=== PATIENT | female | born 1950 ===

== ENCOUNTER 2016-09-12 14:26 | Emergency (ER) | payer MEDICAID, MEDICARE ==
[2016-09-12 14:33] VITALS: TEMP 97.5
[2016-09-12 15:25] VITALS: BP 124/75; PULSE 68; RESP 18; O2SAT 98
--- NOTE | 2016-09-12 16:34 | C.PDOC ---
History Of Present Illness 66 yr old female presents to the ER with complaints of headache and pain under the left eye for the past 4 days. Patient states she took ibuprofen earlier today with some relief. Denies fever, vision changes, pain with movement of the eye, neck pain, weakness or numbness. Time Seen by Provider: 09/12/16 15:05 Chief Complaint (Nursing): Headache History Per: Patient History/Exam Limitations: no limitations Onset/Duration Of Symptoms: Days (4) Preceeding Symptoms: None Past Medical History Reviewed: Historical Data, Nursing Documentation, Vital Signs Vital Signs: Last Vital Signs Temp 97.5 F L 09/12/16 14:29 Pulse 68 09/12/16 15:24 Resp 18 09/12/16 15:24 BP 124/75 09/12/16 15:24 Pulse Ox 98 09/12/16 16:37 - Medical History PMH: Arthritis, Osteoporosis Family History: States: No Known Family Hx - Social History Hx Tobacco Use: No Hx Alcohol Use: No Hx Substance Use: No - Immunization History Hx Tetanus Toxoid Vaccination: Yes Hx Influenza Vaccination: No Hx Pneumococcal Vaccination: No Review Of Systems Except As Marked, All Systems Reviewed And Found Negative. Constitutional: Negative for: Fever Eyes: Positive for: Pain (Pain under left eye ). Negative for: Vision Change Musculoskeletal: Negative for: Neck Pain Neurological: Positive for: Headache. Negative for: Weakness, Numbness Physical Exam - Physical Exam Appears: Non-toxic, No Acute Distress Skin: Warm, Dry, No Rash Head: Atraumatic, Normacephalic Eye(s): bilateral: Normal Inspection, PERRL, EOMI, left: Other (Extraocular muscles intact. Globe is soft. Tenderness in the left maxillary sinus. ) Ear(s): Bilateral: Normal Neck: Normal, Normal ROM, Supple Chest: Symmetrical, No Tenderness Cardiovascular: Rhythm Regular, No Murmur Respiratory: Normal Breath Sounds, No Rales, No Rhonchi, No Stridor, No Wheezing Extremity: Normal ROM, No Swelling Neurological/Psych: Oriented x3, Normal Speech, Normal Motor, Normal Sensation ED Course And Treatment O2 Sat by Pulse Oximetry: 98 Medical Decision Making Medical Decision Making: PLAN: * Tylenol PO Disposition - Disposition Referrals: dIalia Williamson, [Non-Staff] - Disposition: HOME/ ROUTINE Disposition Time: 15:00 Condition: GOOD Additional Instructions: Thank you for letting us take care of you today. Your provider was Dr. Stevenson. You were treated for sinus infection. The emergency medical care you received today was directed at your acute symptoms. If you were prescribed any medication, please fill it and take as directed. It may take several days for your symptoms to resolve. Return to the Emergency Department if your symptoms worsen, do not improve, or if you have any other problems. Please contact your doctor or call one of the physicians/clinics you have been referred to that are listed on the Patient Visit Information form that is included in your discharge packet. Bring any paperwork you were given at discharge with you along with any medications you are taking to your follow up visit. Our treatment cannot replace ongoing medical care by a primary care provider (PCP) outside of the emergency department. Thank you for allowing the [facility] team to be part of your care today. Follow up with your doctor in 3-4 days for re-evaluation. Prescriptions: Amoxicillin/Clavulanate [Augmentin 875 MG-125 MG] 1 tab PO Q12 #14 tab Instructions: Sinusitis (ED) Forms: Gen Discharge Inst Burkinan Print Language: ISRAELI - Clinical Impression Clinical Impression: Sinusitis - Scribe Statement The provider has reviewed the documentation as recorded by the Nini Joaquin Provider Attestation: All medical record entries made by the Nini were at my direction and personally dictated by me. I have reviewed the chart and agree that the record accurately reflects my personal performance of the history, physical exam, medical decision making, and the department course for this patient. I have also personally directed, reviewed, and agree with the discharge instructions and disposition.
== END 2016-09-12 15:25 | disposition home or self-care (01) ==
LOC: C.ER 14:26
DX: J32.9 Chronic sinusitis, unspecified (principal)

== ENCOUNTER 2016-09-29 13:30 | Emergency (ER) | payer OTHER, MEDICAID ==
[2016-09-29] MEDS ORDERED: Sodium Chloride 0.9% 1,000 ML IV ONE (13:54)
[2016-09-29 14:29] LABS: BASO % 0.5 % (0.0-2.0); EOS # 0.1 K/uL (0.0-0.7); HEMOGLOBIN 12.7 g/dL (11.0-16.0); LYMPH # 2.5 K/uL (1.0-4.3); LYMPH % 38.6 % (20.0-40.0); MEAN CELL VOLUME 89.8 fL (81.0-99.0); MEAN CORPUSCULAR HEMOGLOBIN 29.6 pg (27.0-31.0); MEAN PLATELET VOLUME 9.7 fL (7.2-11.7); MONO # 0.5 K/uL (0.0-0.8); MONO % 7.8 % (0.0-10.0); NEUT # 3.4 K/uL (1.8-7.0); NEUT % 52.1 % (50.0-75.0); RBC 4.28 Mil/uL (3.80-5.20); RED CELL DISTRIBUTION WIDTH 13.2 % (11.5-14.5); WHITE BLOOD COUNT 6.5 K/uL (4.8-10.8)
[2016-09-29] MEDS ORDERED: Sodium Chloride 0.9% 1,000 ML ONE (14:33)
[2016-09-29 14:34] LABS: SQUAMOUS EPITHIAL < 1 /hpf (0-5); URINE BILIRUBIN NEGATIVE (NEGATIVE); URINE BLOOD 1+ (NEGATIVE); URINE CLARITY Clear (Clear); URINE COLOR Colorless (YELLOW); URINE GLUCOSE (UA) NORMAL (Normal); URINE LEUKOCYTE ESTERASE NEG Leu/uL (Negative); URINE NITRATE NEGATIVE (NEGATIVE); URINE PROTEIN NEGATIVE (NEGATIVE); URINE UROBILINOGEN NORMAL mg/dL (0.2-1.0)
[2016-09-29 14:39] LABS: GFR AFRICAN-AMERICAN > 60; GFR NON-AFRICAN AMERICAN > 60
[2016-09-29 14:40] LABS: ALB/GLOB RATIO 1.4 (1.0-2.1); ALT/SGPT 35 U/L (9-52); AST/SGOT 30 U/L (14-36); BLOOD UREA NITROGEN 10 mg/dL (7-17); CALCIUM 9.1 mg/dl (8.6-10.4); LIPASE 91 U/L (23-300)
--- NOTE | 2016-09-29 15:34 | C.PDOC ---
History Of Present Illness 66 y/o female that presents to the ED for evaluation of nausea associated with abdominal cramping for the last 2 days. Patient also reports having multiple mucousy bowel movements. Patient states that her symptoms began after "eating pork" 1 week ago- states pork doesn't typically agree with her. Patient denies vomiting, diarrhea, fever, dysuria/hematuria, vagnal bleeding/discharge. Time Seen by Provider: 09/29/16 13:36 Chief Complaint (Nursing): Abdominal Pain History Per: Patient History/Exam Limitations: no limitations Onset/Duration Of Symptoms: Days (2) Current Symptoms Are (Timing): Still Present Severity: Mild Quality Of Discomfort: Cramping Associated Symptoms: Nausea. denies: Fever, Chills, Vomiting, Diarrhea, Loss Of Appetite, Back Pain, Chest Pain, Constipation, Urinary Symptoms Exacerbating Factors: None Alleviating Factors: None Recent travel outside of the [place]: No Additional History Per: Patient Abnormal Vaginal Bleeding: No Past Medical History Reviewed: Historical Data, Nursing Documentation, Vital Signs Vital Signs: Last Vital Signs Temp 97.8 F 09/29/16 15:39 Pulse 58 L 09/29/16 15:39 Resp 16 09/29/16 15:39 BP 127/68 09/29/16 15:39 Pulse Ox 96 09/29/16 16:20 - Medical History PMH: Arthritis, Osteoporosis Family History: States: No Known Family Hx - Social History Hx Tobacco Use: No Hx Alcohol Use: No Hx Substance Use: No - Immunization History Hx Tetanus Toxoid Vaccination: Yes Hx Influenza Vaccination: No Hx Pneumococcal Vaccination: No Review Of Systems Except As Marked, All Systems Reviewed And Found Negative. Constitutional: Negative for: Fever, Chills Cardiovascular: Negative for: Chest Pain, Palpitations Respiratory: Negative for: Cough, Shortness of Breath Gastrointestinal: Positive for: Nausea, Abdominal Pain, Other (mucousy bowel movements). Negative for: Vomiting, Diarrhea, Constipation Genitourinary: Negative for: Dysuria, Frequency, Hematuria Musculoskeletal: Negative for: Back Pain Physical Exam - Physical Exam Appears: Well, Non-toxic, No Acute Distress Skin: Normal Color, Warm, Dry Eye(s): bilateral: Normal Inspection Oral Mucosa: Moist Cardiovascular: Rhythm Regular Respiratory: Normal Breath Sounds, No Rales, No Rhonchi, No Wheezing Gastrointestinal/Abdominal: Normal Exam, Bowel Sounds, Soft, No Tenderness, No Guarding, No Rebound Neurological/Psych: Oriented x3 ED Course And Treatment - Laboratory Results Result Diagrams: 09/29/16 14:24 09/29/16 14:24 O2 Sat by Pulse Oximetry: 96 (on RA) Pulse Ox Interpretation: Normal Progress Note: Blood work, urinalysis ordered and reviewed. Patient was given IV NS bolus, PO tylenol. Reevaluation Time: 15:30 Reassessment Condition: Improved (On reassessment, patient states she feels well , has no current pain. On exam, abdomen is soft and nontender. Blood work, UA unremarkable. Patient given Rxs for Bentyl and Zofran, and was instructed to drink plenty of clear fluids and follow up with PMD in 1-2 days. She understands she should return to ED if symptoms worsen.) Disposition Counseled Patient/Family Regarding: Studies Performed, Diagnosis, Need For Followup, Rx Given - Disposition Referrals: Everardo Li MD [Medical Doctor] - Disposition: HOME/ ROUTINE Disposition Time: 15:30 Condition: STABLE Additional Instructions: SEGUIMIENTO CON KUMAR MDICO EN 1-2 CHANG BEBIDA DE FLUIDOS JESSICA DEVUELVA A LA ROXANE DE EMERGENCIA SI LOS SNTOMAS EMPEORARAN USE MEDICAMENTOS MARK SEA NECESARIO Prescriptions: Dicyclomine [Bentyl] 20 mg PO Q6 PRN #12 tab PRN Reason: ABDOMINAL CRAMPING Ondansetron [Zofran Odt] 4 mg PO Q8 PRN #10 odt PRN Reason: Nausea/Vomiting Forms: General Discharge Instructions Print Language: TAJIK - POA Present On Arrival: None - Clinical Impression Clinical Impression: Nausea, Headache, Increased stool volume - Scribe Statement The provider has reviewed the documentation as recorded by the Jenniferibfelecia Castelan All medical record entries made by the Scribe were at my direction and personally dictated by me. I have reviewed the chart and agree that the record accurately reflects my personal performance of the history, physical exam, medical decision making, and the department course for this patient. I have also personally directed, reviewed, and agree with the discharge instructions and disposition.
[2016-09-29 15:40] VITALS: BP 127/68; PULSE 58; RESP 16; TEMP 97.8
[2016-09-29 16:14] VITALS: O2SAT 96
== END 2016-09-29 15:50 | disposition home or self-care (01) ==
LOC: C.ER 13:30
DX: R11.0 Nausea (principal); R51 Headache; R19.8 Other specified symptoms and signs involving the digestive system and abdomen
CPT/HCPCS: 80053; 81001; 83690; 85025; 96360; 99284; J7040

== ENCOUNTER 2017-11-10 14:35 | Emergency (ER) | payer OTHER ==
[2017-11-10 14:59] VITALS: BMI 22.2
[2017-11-10 15:03] VITALS: PULSE 69
--- NOTE | 2017-11-10 15:31 | C.PDOC ---
History Of Present Illness HPI: Patient is a 67 year old female with history of gastritis who reports for 3 day history of right sided rib pain that radiates around to right side of her back associated with nausea, headache. She also complains of 1 week history of burning with urination. She denies fevers, chills, chest pain, shortness of breath, palpitations, hematuria, vaginal discharge, vaginal bleeding, diarrhea, constipation. She denies injuring her ribs in any way recently, denies falls. PMH: gastritis, arthritis PSH: none Social hx: denies alcoho, tobacco or drug use. Meds: Vitamins, Raloxifene Allergies: milk PMD: Dr. Everardo Li Time Seen by Provider: 11/10/17 15:06 Chief Complaint (Nursing): Rib Injury Past Medical History Vital Signs: Last Vital Signs Temp 97.6 F 11/10/17 18:53 Pulse 69 11/10/17 18:53 Resp 16 11/10/17 18:53 BP 115/70 11/10/17 18:53 Pulse Ox 98 11/10/17 18:53 - Medical History PMH: Arthritis, Osteoporosis Family History: States: Unknown Family Hx - Social History Hx Tobacco Use: No Hx Alcohol Use: No Hx Substance Use: No - Immunization History Hx Tetanus Toxoid Vaccination: Yes Hx Influenza Vaccination: No Hx Pneumococcal Vaccination: No Review Of Systems Constitutional: Negative for: Fever, Chills Cardiovascular: Negative for: Chest Pain, Palpitations Respiratory: Negative for: Cough, Shortness of Breath Gastrointestinal: Positive for: Nausea. Negative for: Vomiting, Diarrhea, Constipation Genitourinary: Positive for: Dysuria. Negative for: Hematuria, Vaginal Discharge, Vaginal Bleeding Skin: Negative for: Rash Physical Exam - Physical Exam Appears: Well, Non-toxic, No Acute Distress Skin: Warm, Dry Head: Atraumatic, Normacephalic Eye(s): bilateral: PERRL, EOMI Oral Mucosa: Moist Chest: Symmetrical, Tenderness (reproducible tenderness along right lower ribs radiating around to posterior ribs. No rash noted. ) Cardiovascular: Rhythm Regular Respiratory: Normal Breath Sounds, No Rales, No Rhonchi, No Stridor, No Wheezing Gastrointestinal/Abdominal: Bowel Sounds, Soft, Tenderness (mild right lower abdominal tenderness, mild suprapubic tenderness. Negative obturator sign. ), No Distention, No Guarding, No Rebound, No Ascites Back: CVA Tenderness (Mild right CVA tenderness. No left CVA tenderness) Extremity: Normal ROM, No Tenderness, No Pedal Edema, No Calf Tenderness ED Course And Treatment - Laboratory Results Result Diagrams: 11/10/17 15:55 11/10/17 15:55 O2 Sat by Pulse Oximetry: 100 - Other Rad Ribs X-Ray: Read By Radiologist Interpretation: No appreciable fracture. Progress Note: On re-evaluation, patient states her pain in her right lower ribs and right lower abdomen has improved. Reevaluation Time: 18:10 Reassessment Condition: Improved Medical Decision Making Medical Decision Making: While in the ED, patient received Tylenol 650mg PO for pain with improvement of her symptoms. CBC with diff, CMP, and UA were ordered and within normal limits. UA did not indicate urinary tract infection. Ribs X ray did not reveal fracture of ribs. Disposition - Disposition Referrals: Everardo Li MD [Medical Doctor] - Disposition: HOME/ ROUTINE Disposition Time: 19:20 Condition: IMPROVED Additional Instructions: Follow up with your primary care doctor Dr. Li in 1 to 2 weeks for evaluation. Please return to the ED if your symptoms persist or worsen or if you develop fever, chills, worsening pain, and worsening symptoms. Instructions: Dysuria, Adult (DC), Bruised Rib (DC) Forms: [employer] (Yi) Print Language: FAROESE - Clinical Impression Clinical Impression: Sprained rib, Dysuria
[2017-11-10 15:58] LABS: BASO % 0.6 % (0.0-2.0); EOS # 0.1 K/uL (0.0-0.7); EOS % 1.2 % (0.0-4.0); HEMOGLOBIN 12.9 g/dL (11.0-16.0); LYMPH # 2.7 K/uL (1.0-4.3); LYMPH % 40.7 % (20.0-40.0); MEAN CELL VOLUME 88.4 fL (81.0-99.0); MEAN CORPUSCULAR HEMOGLOBIN 30.7 pg (27.0-31.0); MEAN CORPUSCULAR HGB CONC 34.7 g/dL (33.0-37.0); MEAN PLATELET VOLUME 9.3 fL (7.2-11.7); MONO # 0.5 K/uL (0.0-0.8); MONO % 7.4 % (0.0-10.0); NEUT # 3.4 K/uL (1.8-7.0); NEUT % 50.1 % (50.0-75.0); NRBC % 0.1 % (0.0-2.0); RBC 4.19 Mil/uL (3.80-5.20); RED CELL DISTRIBUTION WIDTH 13.2 % (11.5-14.5); WHITE BLOOD COUNT 6.7 K/uL (4.8-10.8)
[2017-11-10 16:14] LABS: ALB/GLOB RATIO 1.6 (1.0-2.1); ALBUMIN 4.3 g/dL (3.5-5.0); ALT/SGPT 25 U/L (9-52); AST/SGOT 27 U/L (14-36); BLOOD UREA NITROGEN 17 mg/dL (7-17); CALCIUM 9.2 mg/dl (8.6-10.4); GFR NON-AFRICAN AMERICAN > 60
--- NOTE | 2017-11-10 17:29 | RAD ---
Date of service: 11/10/2017 PROCEDURE: Radiographs of the Chest and Right Ribs. HISTORY: right rib pain COMPARISON: Ribs and left chest x-ray performed 05/10/16 TECHNIQUE: Frontal radiograph of the chest and multiple oblique radiographs of the right ribs were obtained. FINDINGS: RIGHT RIBS: No acute displaced fracture identified. LUNGS: No focal consolidation identified. Please note that chest x-ray has limited sensitivity for the detection of pulmonary masses. PLEURA: No significant pleural effusion. No definite pneumothorax. CARDIOVASCULAR: Heart size appears within normal limits. OTHER FINDINGS: None. IMPRESSION: Unremarkable radiographs of the chest and right ribs. No appreciable displaced right rib fracture.
[2017-11-10 18:17] LABS: SQUAMOUS EPITHIAL 1 /hpf (0-5); URINE BACTERIA RARE (<OCC); URINE BILIRUBIN NEGATIVE (NEGATIVE); URINE BLOOD 1+ (NEGATIVE); URINE CLARITY Hazy (Clear); URINE COLOR Amber (YELLOW); URINE GLUCOSE (UA) NORMAL (Normal); URINE LEUKOCYTE ESTERASE NEG Leu/uL (Negative); URINE PROTEIN NEGATIVE (NEGATIVE); URINE UROBILINOGEN NORMAL mg/dL (0.2-1.0)
[2017-11-10 18:54] VITALS: BP 115/70; RESP 16; TEMP 97.6
[2017-11-10 21:09] VITALS: O2SAT 100
== END 2017-11-10 18:53 | disposition home or self-care (01) ==
LOC: C.ER 14:35
DX: S23.41XA Sprain of ribs, initial encounter (principal); X58.XXXA Exposure to other specified factors, initial encounter; R30.0 Dysuria

== ENCOUNTER 2017-12-17 08:56 | Day surgery (SDC) | payer OTHER ==
[2017-12-17 09:27] VITALS: TEMP 97.1; O2SAT 100
--- NOTE | 2017-12-17 10:43 | CP.SDSHP ---
Same Day Surgery H & P - History Proposed Procedure: EGD Pre-Op Diagnosis: Epigastric pain. abnormal CT Scan of stomach r/o polyp - Previous Medical/Surgical History Cardiac: Hypertension Misc: Other (osteoporosis, gastritis, colitis?, DJD, Liver cysts) Previous Surgical History: Bladder suspension. Tubal ligation - Allergies Allergies: Allergies milk Allergy (Verified 11/10/17 14:58) - Physical Exam Vital Signs: Vital Signs 12/17/17 09:20 Temperature 97.1 F L Pulse Rate 59 L Respiratory 18 Rate Blood Pressure 127/50 L O2 Sat by Pulse 100 Oximetry Mental Status: Alert & Oriented x3 Neuro: WNL Heart: WNL Lungs: WNL GI: WNL - Impression Impression: epigastric pain. abnormal CT of stomach, r/o polypoid mass Pt. Evaluated Today:Candidate for Anesthesia & Procedure: Yes - Date & Time Date: 12/17/17 Time: 10:43 Short Stay Discharge - Short Stay Discharge Admitting Diagnosis/Reason for Visit: ABNORAL FINDINGS ON DX IMAGING, POLYP OF STOMACH A Disposition: HOME/ ROUTINE
[2017-12-17 11:56] VITALS: BP 108/43; PULSE 52; RESP 16
[2017-12-17] MEDS ORDERED: Propofol 10 mg/ml Inj (20 ML) ONE (13:11)
[2017-12-17] MEDS ORDERED: Lidocaine Hydrochloride 5 ML INJ ONE (13:11)
== END 2017-12-17 12:20 | disposition home or self-care (01) ==
LOC: C.ENDO 08:56
PROVIDERS: ATTEND Internal Medicine Gastroenterology
DX: K31.7 Polyp of stomach and duodenum (principal); K76.89 Other specified diseases of liver; K21.9 Gastro-esophageal reflux disease without esophagitis; K44.9 Diaphragmatic hernia without obstruction or gangrene; K29.70 Gastritis, unspecified, without bleeding
CPT/HCPCS: 43239; 88305; J2704

== ENCOUNTER 2018-06-29 16:04 | Emergency (ER) | payer OTHER ==
[2018-06-29 16:05] VITALS: BMI 22.2
--- NOTE | 2018-06-29 19:23 | C.PDOC ---
History Of Present Illness Patient presents feeling dizzy since last night. Patient states she is able to walk, just feels dizzy especially when laying down and standing up. Denies tinnitus. Time Seen by Provider: 06/29/18 19:22 Chief Complaint (Nursing): Dizziness/Lightheaded History Per: Patient History/Exam Limitations: no limitations Onset/Duration Of Symptoms: Days (1) Current Symptoms Are (Timing): Still Present Seizure Or Post-ictal Symptoms: None Fall Associated With With Symptoms: No Severity: Moderate Pain Scale Rating Of: 4 Recent travel outside of the [place]: No - Symptoms Of CVA Associated Symptoms: denies: Impaired Speech, Seizure Activity, New Vision Deficit(Left), New Vision Deficit(Right), Decreased Ability To Walk, New Confusion Past Medical History Reviewed: Historical Data, Nursing Documentation, Vital Signs Vital Signs: Last Vital Signs Temp 97.9 F 06/29/18 16:36 Pulse 73 06/29/18 16:36 Resp 18 06/29/18 16:36 BP 145/70 06/29/18 16:36 Pulse Ox 99 06/29/18 16:36 - Medical History PMH: Arthritis, Osteoporosis Denies: Chronic Kidney Disease Surgical History: Endoscopy Family History: States: Unknown Family Hx - Social History Hx Tobacco Use: No Hx Alcohol Use: No Hx Substance Use: No - Immunization History Hx Tetanus Toxoid Vaccination: Yes Hx Influenza Vaccination: No Hx Pneumococcal Vaccination: No Review Of Systems Constitutional: Negative for: Fever, Chills Cardiovascular: Negative for: Chest Pain, Palpitations Respiratory: Negative for: Cough, Shortness of Breath Gastrointestinal: Negative for: Nausea, Vomiting Neurological: Positive for: Dizziness. Negative for: Weakness, Numbness Physical Exam - Physical Exam Appears: Non-toxic Skin: Warm, Dry Head: Normacephalic Eye(s): bilateral: Normal Inspection (No nystagmus), PERRL, EOMI Oral Mucosa: Moist Neck: Trachea Midline, Supple Chest: Symmetrical, No Tenderness Cardiovascular: Rhythm Regular Respiratory: No Rales, No Rhonchi, No Wheezing Gastrointestinal/Abdominal: Soft, No Tenderness Extremity: Other (Moves all extremities) Neurological/Psych: Oriented x3, Other (Negative romberg. No focal deficit.) ED Course And Treatment - Laboratory Results Result Diagrams: 06/29/18 19:45 06/29/18 19:45 ECG: Interpreted By Me, Viewed By Me ECG Rhythm: Sinus Rhythm (75), Nonspecific Changes O2 Sat by Pulse Oximetry: 99 (Room air) Pulse Ox Interpretation: Normal Progress Note: CT head, EKG, blood work, CXR, and urinalysis ordered. Antivert administered. Reevaluation Time: 22:03 Reassessment Condition: Improved NIHSS Stroke Scale 2 - Date/Time Evaluation Performed Date Performed: 06/29/18 Time Performed: 19:30 When Was NIHSS Performed: Baseline - How Severe is the Stroke Level of Consciousness: 0=Alert LOC to Questions: 0=Both comments correct LOC to commands: 0=Obeys both correctly Best Gaze: 0=Normal Visual: 0=No visual loss Facial: 0=Normal Motor Arm - Left: 0=No drift Motor Arm - Right: 0=No drift Motor Leg - Left: 0=No drift Motor Leg - Right: 0=No drift Limb Ataxia: 0=Absent Sensory: 0=Normal Best Language: 0=No aphasia Dysarthia: 0=Normal articulation Extinction & Inattention (Neglect): 0=Normal, no object Score: 0 Medical Decision Making Medical Decision Making: Upon provider reevaluation patient is feeling better, is medically stable, and requires no further treatment in the ED at this time. Patient will be discharged home with Rx for antivert, zofran . Counseling was provided and all questions were answered regarding diagnosis and need for follow up withdr li. There is agreement to discharge plan. Return if symptoms persist or worsen. Disposition Counseled Patient/Family Regarding: Studies Performed, Diagnosis, Need For Followup, Rx Given - Disposition Referrals: Everardo Li MD [Medical Doctor] - Disposition: HOME/ ROUTINE Disposition Time: 19:23 Condition: FAIR Additional Instructions: Please return if symptoms recur Prescriptions: Meclizine [Antivert] 25 mg PO TID #21 tab Ondansetron ODT [Zofran ODT] 1 odt PO BID PRN #6 odt PRN Reason: Nausea/Vomiting Instructions: Vertigo (a Type of Dizziness) Forms: [facility] (Hungarian) Print Language: ICELANDIC - Clinical Impression Clinical Impression: Dizziness - Scribe Statement The provider has reviewed the documentation as recorded by the Scribe Richard Avery All medical record entries made by the Scribe were at my direction and personally dictated by me. I have reviewed the chart and agree that the record accurately reflects my personal performance of the history, physical exam, medical decision making, and the department course for this patient. I have also personally directed, reviewed, and agree with the discharge instructions and disposition.
[2018-06-29 19:55] LABS: BASO % 0.4 % (0.0-2.0); EOS # 0.1 K/uL (0.0-0.7); EOS % 0.8 % (0.0-4.0); HEMOGLOBIN 13.5 g/dL (11.0-16.0); LYMPH # 3.6 K/uL (1.0-4.3); MEAN CELL VOLUME 91.4 fL (81.0-99.0); MEAN CORPUSCULAR HEMOGLOBIN 30.5 pg (27.0-31.0); MEAN CORPUSCULAR HGB CONC 33.3 g/dL (33.0-37.0); MEAN PLATELET VOLUME 9.6 fL (7.2-11.7); MONO # 0.4 K/uL (0.0-0.8); MONO % 5.9 % (0.0-10.0); NEUT # 2.8 K/uL (1.8-7.0); NEUT % 40.9 % (50.0-75.0); RBC 4.44 Mil/uL (3.80-5.20); RED CELL DISTRIBUTION WIDTH 13.2 % (11.5-14.5); WHITE BLOOD COUNT 6.9 K/uL (4.8-10.8)
[2018-06-29 20:08] LABS: ALB/GLOB RATIO 1.7 (1.0-2.1); ALBUMIN 4.5 g/dL (3.5-5.0); ALT/SGPT 17 U/L (9-52); AST/SGOT 41 U/L (14-36); BLOOD UREA NITROGEN 17 mg/dL (7-17); CALCIUM 9.4 mg/dl (8.6-10.4); GFR NON-AFRICAN AMERICAN > 60
[2018-06-29 20:18] LABS: PROTHROMBIN TIME 11.2 SECONDS (9.7-12.2)
[2018-06-29 20:20] LABS: SQUAMOUS EPITHIAL 1 /hpf (0-5); URINE BACTERIA RARE (<OCC); URINE BILIRUBIN NEGATIVE (NEGATIVE); URINE BLOOD NEGATIVE (NEGATIVE); URINE CLARITY Hazy (Clear); URINE COLOR YELLOW (YELLOW); URINE GLUCOSE (UA) NORMAL (Normal); URINE LEUKOCYTE ESTERASE NEG Leu/uL (Negative); URINE PROTEIN NEGATIVE (NEGATIVE); URINE UROBILINOGEN NORMAL mg/dL (0.2-1.0)
[2018-06-29 22:18] VITALS: BP 122/76; PULSE 70; RESP 18; TEMP 98.5; O2SAT 100
--- NOTE | 2018-06-30 08:02 | RAD ---
Date of service: 06/29/2018 PROCEDURE: CHEST RADIOGRAPH, 1 VIEW HISTORY: SOB COMPARISON: 11/10/2017 FINDINGS: LUNGS: Clear. Bilateral hyperinflation-background COPD-a consideration. Correlate clinically. PLEURA: No pneumothorax or pleural fluid seen. CARDIOVASCULAR: No aortic atherosclerotic calcification present. Normal. OSSEOUS STRUCTURES: No significant abnormalities. VISUALIZED UPPER ABDOMEN: Normal. OTHER FINDINGS: None. IMPRESSION: No interval acute/active disease. Other findings as above.
--- NOTE | 2018-06-30 08:49 | CT ---
Date of service: 06/29/2018 PROCEDURE: CT HEAD WITHOUT CONTRAST. HISTORY: dizzyness COMPARISON: Not available TECHNIQUE: Axial computed tomography images were obtained through the head/brain without intravenous contrast. Radiation dose: Total exam DLP = 1015.53 mGy-cm. This CT exam was performed using one or more of the following dose reduction techniques: Automated exposure control, adjustment of the mA and/or kV according to patient size, and/or use of iterative reconstruction technique. FINDINGS: HEMORRHAGE: No intracranial hemorrhage. BRAIN: No mass effect or edema. No atrophy or chronic microvascular ischemic changes. VENTRICLES: Unremarkable. No hydrocephalus. CALVARIUM: Unremarkable. PARANASAL SINUSES: Unremarkable as visualized. No significant inflammatory changes. MASTOID AIR CELLS: Unremarkable as visualized. No inflammatory changes. OTHER FINDINGS: None. IMPRESSION: Normal CT of the Head. No intracranial mass, hemorrhage or evidence of acute infarct. The preliminary findings for this examination were reported by [facility] at 8:13 p.m. on 06/29/2018. There is concurrence of this report with the preliminary findings.
== END 2018-06-29 22:19 | disposition home or self-care (01) ==
LOC: C.ER 16:04
DX: R42 Dizziness and giddiness (principal)

== ENCOUNTER 2018-07-06 11:04 | Emergency (ER) | payer OTHER ==
[2018-07-06 11:13] VITALS: BMI 21.8
--- NOTE | 2018-07-06 11:59 | C.PDOC ---
History Of Present Illness 68 y/o female with osteoporosis c/o back pain since last wed after falling when trying to sit on a chair.pt sts she went to sit in a chair that had wheels and chair rolled away and pt landed on buttocks. did not hit head. pt takes meloxicam occasionally and is taking tylenol 650 mg po bid with some relief. Time Seen by Provider: 07/06/18 11:28 Chief Complaint (Nursing): Back Pain History Per: Patient History/Exam Limitations: no limitations Quality Of Discomfort: "Pain" Additional History Per: Patient Past Medical History Reviewed: Historical Data, Nursing Documentation, Vital Signs Vital Signs: Last Vital Signs Temp 98.9 F 07/06/18 11:13 Pulse 97 H 07/06/18 11:13 Resp 16 07/06/18 11:13 BP 128/68 07/06/18 11:13 Pulse Ox 98 07/06/18 11:13 - Medical History PMH: Arthritis, Gastritis, Osteoporosis Denies: Chronic Kidney Disease Surgical History: Endoscopy Family History: States: Unknown Family Hx - Social History Hx Tobacco Use: No Hx Alcohol Use: No Hx Substance Use: No - Immunization History Hx Tetanus Toxoid Vaccination: Yes Hx Influenza Vaccination: No Hx Pneumococcal Vaccination: No Review Of Systems Musculoskeletal: Positive for: Back Pain Neurological: Negative for: Other (head injury ) Physical Exam - Physical Exam Appears: Non-toxic, No Acute Distress Skin: Normal Color, Warm, Dry Head: Atraumatic, Normacephalic Eye(s): bilateral: Normal Inspection Oral Mucosa: Moist Neck: Supple Chest: Symmetrical, No Deformity, No Tenderness Back: Other (thoracic to coccygeal midline tenderness, no swelling. ) Pelvic: Other (right posterior pelvic tenderness ) Extremity: Normal ROM, Capillary Refill (less than 2 seconds ) Pulses: Left Dorsalis Pedis: Normal, Right Dorsalis Pedis: Normal Neurological/Psych: Normal Speech, Normal Cognition, Normal Motor, Normal Sensa tion Gait: Steady ED Course And Treatment O2 Sat by Pulse Oximetry: 98 (on RA) Pulse Ox Interpretation: Normal - Other Rad Thoracic Spine XR X-Ray: Viewed By Me, Read By Radiologist Interpretation: IMPRESSION: No acute fractures. Minimal degenerative spondylosis. Lumbar Spine XR X-Ray: Viewed By Me, Read By Radiologist Interpretation: IMPRESSION: No acute fractures. Minor multilevel degenerative spondylosis. Pelvic XR X-Ray: Viewed By Me, Read By Radiologist Interpretation: IMPRESSION: Unremarkable radiographs of the pelvis. Medical Decision Making Medical Decision Making: Thoracic Spine, Lumbar Spine and Pelvis XR ordered and reviewed. pt with no vertebral pr pelvic fx noted by me. d/c home with tylenol. f/u pmd Disposition Counseled Patient/Family Regarding: Studies Performed, Diagnosis, Need For Followup, Rx Given - Disposition Referrals: Everardo Li MD [Medical Doctor] - Disposition: HOME/ ROUTINE Disposition Time: 14:33 Condition: GOOD Additional Instructions: Por favor tome Meloxicam diariamente segn lo prescrito. [place] Tylenol cada 4-6 horas para el dolor. Seguimiento con el Dr. Li en los prximos hunter. Please take Meloxicam daily as prescribed. Take Tylenol every 4-6 hours for pain. Follow up with Dr Li in next few days. Prescriptions: Acetaminophen [Tylenol 325mg tab] 650 mg PO Q4 #50 tab Instructions: Low Back Pain in Adults Forms: Gen Discharge Inst Arabic, EGEN (Arabic) Print Language: KAZAKH - Clinical Impression Clinical Impression: Low back pain, Fall involving chair as cause of accidental injury in home as place of occurrence - PA / [employer] O[employer]ATOR / Resident Statement MD/DO has reviewed & agrees with the documentation as recorded. - Scribe Statement The provider has reviewed the documentation as recorded by the Scribe (Aicha Castelan) All medical record entries made by the Scribe were at my direction and personally dictated by me. I have reviewed the chart and agree that the record accurately reflects my personal performance of the history, physical exam, medical decision making, and the department course for this patient. I have also personally directed, reviewed, and agree with the discharge instructions and disposition.
[2018-07-06 13:21] VITALS: BP 117/72; PULSE 61; TEMP 97.2
[2018-07-06 14:33] VITALS: O2SAT 98
--- NOTE | 2018-07-06 14:34 | RAD ---
Date of service: 07/06/2018 PROCEDURE: Radiographs of the Lumbar Spine. HISTORY: History of osteoporosis s/p fall COMPARISON: No prior. TECHNIQUE: 5 views obtained. FINDINGS: BONES: No acute compression fractures nor retropulsed fragments. Vertebral bodies exhibit normal stature. Vertebral bodies and facets normally aligned. DISC SPACES: Disc space heights relatively maintained.. Mild facet arthropathy L5-S1 through the L2-L3 levels in decreasing order of severity OTHER FINDINGS: None. IMPRESSION: No acute fractures. Minor multilevel degenerative spondylosis.
--- NOTE | 2018-07-06 14:35 | RAD ---
Date of service: 07/06/2018 HISTORY: Status post fall in a patient with history of osteoporosis. COMPARISON: No prior. TECHNIQUE: 2 views obtained. FINDINGS: BONES: No acute compression fractures nor retropulsed fragments. Vertebral bodies exhibit normal stature. Vertebral bodies and facets normally aligned. DISC SPACES: Disc space heights are relatively maintained. Tiny marginal anterolateral osteophytes are seen at several levels. SOFT TISSUES: Normal. OTHER FINDINGS: None. IMPRESSION: No acute fractures. Minimal degenerative spondylosis.
--- NOTE | 2018-07-06 14:45 | RAD ---
Date of service: 07/06/2018 PROCEDURE: Radiographs of the pelvis. HISTORY: [place] post fall; history osteoporosis COMPARISON: None. TECHNIQUE: 1 view obtained. FINDINGS: BONES: Pelvic Bones: Unremarkable. Hips: Grossly unremarkable. JOINTS: Sacroiliac Joints: Unremarkable. Pubic Symphysis: Unremarkable. OTHER FINDINGS: None. IMPRESSION: Unremarkable radiographs of the pelvis.
[2018-07-06 14:47] VITALS: RESP 18
== END 2018-07-06 14:47 | disposition home or self-care (01) ==
LOC: C.ER 11:04
DX: M54.5 Low back pain (principal); W07.XXXA Fall from chair, initial encounter; Y92.009 Unspecified place in unspecified non-institutional (private) residence as the place of occurrence of the external cause; M81.0 Age-related osteoporosis without current pathological fracture